=== PATIENT | female | born 1980 | race Caucasian/White ===

== ENCOUNTER 2022-06-03 08:03 | Emergency (ER) | payer OTHER, SELFPAY ==
[2022-06-03 08:29] VITALS: BP 143/96; PULSE 82; RESP 19; TEMP 37; O2SAT 98; BMI 62.6
--- NOTE | 2022-06-03 08:36 | HMH.EDUTC ---
[facility] [place] Disposition Clinical Impression: Cellulitis Qualifiers: Site of cellulitis: unspecified site Qualified Code(s): L03.90 - Cellulitis, unspecified Disposition: Home, Self-Care Condition on Discharge: Good Instructions: Cellulitis, Clindamycin Additional Instructions: *Start antibiotic(s) immediately and be sure to take as ordered for the FULL length of time although you may be feeling better or start to see improvement in the next 24-48 hours *Monitor closely. Outlined redness so that you can monitor easier. Follow up immediately for new or worsening symptoms including but not limited to redness, swelling, streaking from site fever or chills. *Warm compress 15 minutes 3-4 times day *Never squeeze or pop these on your own. Seek immediate medical attention next time this occurs *Monitor Temp. Tylenol every 4 hours as needed and ibuprofen every 6 hours as needed (as long as your primary care doctor has told you that it is ok to take both. For fever, aches, pain. ER if no less that 101 despite Tylenol and ibuprofen Follow up with your family doctor/primary care physician in the next 48-72 hours if no improvement Prescriptions: clindamycin HCL [Cleocin HCl] 300 mg PO Q8H 7 Days #21 cap Transmission Status: Pending to [id number] Mupirocin Calcium [Mupirocin 2% Cream 15gm] 1 applicatio TP TID #15 gm Transmission Status: Pending to [id number] Referrals: Julianne Mansfield APRN [Primary Care Provider] - As needed Time of Disposition: 08:45 Medical Decision Making - Shant Inquiry Pt receiving controlled substance: No Shant was queried for this patient: No Vital Signs: 06/03/22 08:29 Temperature 98.6 F Temperature Source Oral Pulse Rate [Left] 82 Respiratory Rate 19 Blood Pressure [Right Arm] 143/96 H Blood Pressure Mean [Right Arm] 111 02 Sat by Pulse Oximetry 98 Medical Decision Narrative: small area noted cellulitits Patient educated on close follow up for monitoring [facility] [place] HPI - General Stated complaint: possible spider bite Time Seen by Provider: 06/03/22 08:36 Mode of Arrival: Ambulatory Source of Information: Patient Limitations: No Limitations Description of Symptoms (Recalled from Triage Doc. by RN): patient comes in with complaints of possible infected spider bite. located in left lower abdominal fold. occured on wednesday. HEENT Symptoms (Recalled from RN notes): No Resp Symptoms (Recalled from RN notes): No Skin Symptoms (Recalled from RN notes): Yes MS Symptoms (Recalled from RN notes): No Functional Status (Recalled from RN notes): n/a - History of Present Illness Provider Complaint: Patient states that she noticed over the weekend that she had a place on her left lower abdomen that looked like a spider bite States that she noticed it was looking more red and warm so she came in to get it checked before it got too bad - Related Data Home Medications Medication Instructions Recorded Confirmed lisinopriL [Lisinopril] 10 mg PO DAILY 06/03/22 06/03/22 Previous Rx's Medication Instructions Recorded Mupirocin Calcium [Mupirocin 2% 1 applicatio TP TID #15 gm 06/03/22 Cream 15gm] clindamycin HCL [Cleocin HCl] 300 mg PO Q8H 7 Days #21 cap 06/03/22 Allergies Allergy/AdvReac Type Severity Reaction Status Date / Time Sulfa (Sulfonamide Allergy Verified 06/03/22 08:36 Antibiotics) - Worker's Comp Is this a Worker's Comp case?: No [facility] History - Hepatitis A Screen Attestation statement:: This patient has been screened for Hepatitis A risk factors. I have reviewed the patient's past medical history: Yes ROS Obtained: Yes All systems reviewed & no additional complaints, Yes Systems reviewed as appropriate & no additional complaints - Constitutional Constitutional: Reports system reviewed and no additional complaints, except as docu, Denies body ache, Denies chills, Denies fever(s) - Cardiovascular Cardiovascular: Reports system reviewed and no additi
[2022-06-03 08:50] VITALS: BP 143/96; PULSE 82; RESP 19; TEMP 37
== END 2022-06-03 08:53 | disposition home or self-care (01) ==
PROVIDERS: Emergency Provider Nurse Practitioner; PCP Family Medicine
DX: L03.311 Cellulitis of abdominal wall (principal)
CPT/HCPCS: 99212; G0463